=== PATIENT | female | born 1980 | race Caucasian/White ===

== ENCOUNTER 2021-04-15 17:20 | Emergency (ER) | payer OTHER ==
[~2021-04-15] VITALS: Ht 162.6 cm; Wt 95.3 kg
[~2021-04-15 17:20] MED LIST: ACCUNEB0.63 MG/3 IH; KETO10TA2 PO; TESSALON PERLE100 M1 PO; ZITHROMAX500 MG PO
[2021-04-15] MEDS ORDERED: LIPITOR20 MG PO (17:58)
[2021-04-15] MEDS ORDERED: FOLIC D3 94.381 EACH PO (17:59)
== END 2021-04-15 19:49 | disposition home or self-care (01) ==
LOC: ER 17:20
DX: B37.3 Candidiasis of vulva and vagina (principal)

== ENCOUNTER 2021-07-20 08:42 | Emergency (ER) | payer OTHER ==
[~2021-07-20] VITALS: Ht 162.6 cm; Wt 86.2 kg
[~2021-07-20 08:42] MED LIST changes: +FOLIC D3 94.381 EACH PO; +LIPITOR20 MG PO
[2021-07-20] MEDS ORDERED: CIPRO500 MG (08:59)
[2021-07-20] MEDS ORDERED: ZITHROMAX500 MG PO (12:15)
== END 2021-07-20 12:39 | disposition home or self-care (01) ==
LOC: ER 08:42
DX: B34.9 Viral infection, unspecified (principal); Z20.822 Contact with and (suspected) exposure to COVID-19

== ENCOUNTER 2023-03-05 07:20 | Emergency (ER) | payer OTHER ==
[~2023-03-05] VITALS: Ht 162.6 cm; Wt 83.9 kg
[~2023-03-05 07:20] MED LIST changes: +CIPRO500 MG
[2023-03-05] MEDS ORDERED: ZITHROMAX500 MG PO (10:28)
== END 2023-03-05 11:03 | disposition home or self-care (01) ==
LOC: ER 07:20
DX: J02.9 Acute pharyngitis, unspecified (principal); J02.8 Acute pharyngitis due to other specified organisms; Z20.822 Contact with and (suspected) exposure to COVID-19